=== PATIENT | female | born 1980 | race Caucasian/White ===

== ENCOUNTER 2022-06-12 08:24 | Emergency (ER) | payer OTHER ==
[~2022-06-12] VITALS: Ht 157.5 cm; Wt 62.6 kg
== END 2022-06-12 12:06 | disposition home or self-care (01) ==
LOC: ER 08:24
DX: M75.31 Calcific tendinitis of right shoulder (principal)

== ENCOUNTER 2022-06-12 12:40 | Outpatient (CLI) | payer OTHER | END 2022-06-12 12:43 | disposition home or self-care (01) | LOC: RAD 12:40 | PROVIDERS: ATTEND Orthopaedic Surgery | DX: M75.31 Calcific tendinitis of right shoulder (principal) ==